=== PATIENT | female | born 1945 | race Caucasian/White ===

== ENCOUNTER → 2020-05-26 | Outpatient (CLI) | payer OTHER ==
[2020-05-29 15:40] LABS: BASOPHILS # (AUTO) 0.1 10^3/uL (0.0-0.1); BASOPHILS % (AUTO) 1 % (0-10); EOSINOPHILS # (AUTO) 0.1 10^3/uL (0.0-0.3); EOSINOPHILS % (AUTO) 1 % (0-10); HEMATOCRIT 50 % (35-52); LYMPHOCYTES # (AUTO) 2.5 10^3/uL (1.0-4.0); LYMPHOCYTES % (AUTO) 23 % (12-44); MEAN CORPUSCULAR HEMOGLOBIN 28 pg (25-34); MEAN CORPUSCULAR HGB CONC 32 g/dL (32-36); MEAN CORPUSCULAR VOLUME 89 fL (80-99); MEAN PLATELET VOLUME 10.5 fL (9.0-12.2); MONOCYTES # (AUTO) 0.9 10^3/uL (0.0-1.0); MONOCYTES % (AUTO) 9 % (0-12); NEUTROPHILS # (AUTO) 7.1 10^3/uL (1.8-7.8); NEUTROPHILS % (AUTO) 66 % (42-75); PLATELET COUNT 337 10^3/uL (130-400); WHITE BLOOD COUNT 10.8 10^3/uL (4.3-11.0)
[2020-05-29 17:54] LABS: LYMPHOCYTES % (MANUAL) 18 %; MONOCYTES % (MANUAL) 7 %; NEUTROPHILS % (MANUAL) 73 %; RBC MORPH NORMAL; REACTIVE LYMPHOCYTES 2 %
== END ==
LOC: GIR 13:30
PROVIDERS: ATTEND Otolaryngology
DX: Z01.89 Encounter for other specified special examinations (principal)

== ENCOUNTER 2020-12-13 10:16 | Inpatient (IN) | payer OTHER, MEDICARE ==
[~2020-12-13] VITALS: Ht 163 cm; Wt 62.0 kg
[~2020-12-13 10:16] MED LIST: ACHD5005 PO; ALPR0.254 PO; POLY17PO6 PO; TMSL.4C PO
[2020-12-13] MEDS ORDERED: MELATONIN 3 MG TABLET PO PRN (11:15)
[2020-12-13] MEDS ORDERED: METOCLOPRAMIDE INJ 10 MG/2 ML (REGLAN) IV PRN (11:15)
[2020-12-13] MEDS ORDERED: ONDANSETRON 4 MG/2 ML (SDV) Z0FRAN IVP PRN (11:15)
[2020-12-13] MEDS ORDERED: DOCUSATE SODIUM 100 MG (COLACE) CAP PO PRN (11:15)
[2020-12-13] MEDS ORDERED: NS IV 1000 ML 1,000 ML IV SCH (11:15)
[2020-12-13] MEDS ORDERED: diphenhydrAMINE 50 MG/ML INJ (BENADRYL) IV PRN (11:15)
[2020-12-13] MEDS ORDERED: LOPERAMIDE 2 MG (IMODIUM) TABLET PO PRN (11:15)
[2020-12-13] MEDS ORDERED: CALCIUM CARBONATE 500 MG (TUMS) TAB.CHEW PO PRN (11:15)
[2020-12-13] MEDS ORDERED: polyethylene glycoL POWDER 17 GM (MIRALAX) PACK PO PRN (11:15)
[2020-12-13] MEDS ORDERED: ACETAMINOPHEN 500 MG TAB (TYLENOL) PO PRN (11:15)
[2020-12-13] MEDS: HYDROmorphone PF INJECTION 10 MG in NS (IVPB) 50 ML IV SCH (11:43)
[2020-12-13 17:05] VITALS: BP 100/56
[2020-12-13] MEDS: LORazepam ORAL CONCENTRATE 2 MG/ML 30 ML (ATIVAN) PO PRN (20:15)
[2020-12-14] MEDS: HYDROmorphone PF INJECTION 10 MG in NS (IVPB) 50 ML IV SCH (04:03)
[2020-12-14 04:12] VITALS: BP 113/59
[2020-12-14] MEDS: LORazepam ORAL CONCENTRATE 2 MG/ML 30 ML (ATIVAN) PO PRN (06:40)
[2020-12-14] MEDS ORDERED: [UNRECOGNIZED DRUG - CODE] IV (10:50)
[2020-12-14] MEDS ORDERED: [UNRECOGNIZED DRUG - CODE] IV (10:54)
[2020-12-14] MEDS ORDERED: LORA2ORA PO (11:19)
--- NOTE | 2020-12-14 11:19 | History & Physical ---
History of Present Illness HPI/Chief Complaint CC: Inpatient Hospice HPI: Lengthy course after moved from [facility] for Oncology opinion and radiation treatment for palliative care for pain control. 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 Date Seen 12/14/20 Time Seen by a Provider: 11:00 Attending Physician Francisca Gao Lisa A MD Referring Physician Date of Admission December 13, 2020 at 11:05 Home Medications & Allergies Home Medications Reviewed patient Home Medication Reconciliation performed by pharmacy medication reconciliations dish technician and/or nursing. Patients Allergies have been reviewed. Allergies Allergies Coded Allergies raspberry (Verified Adverse Reaction, Mild, Hives, 12/06/20) Past Nvsrhdn-Sdgney-Xiaudw Hx Past Med/Social Hx: Reviewed Nursing Past Med/Soc Hx, Reviewed and Corrections made Patient Social History Marrital Status: single Employed/Student: retired Alcohol Use: Regular Use Smoking Status: Former Smoker Past Medical History Cardiac: Deep Vein Thrombosis, High Cholesterol, Hypertension Neurological: Spinal Cord Injury Gastrointestinal: Gastroesophageal Reflux Review of Systems Constitutional: see HPI Physical Exam Physical Exam Vital Signs Vital Signs - First Documented 12/13/20 12/13/20 12:13 17:05 Temp 36.6 Pulse 99 Resp 18 B/P (MAP) 100/56 (71) Pulse Ox 96 O2 Delivery Nasal Cannula O2 Flow Rate 2.00 Capillary Refill : Height, Weight, BMI Height: '" Weight: lbs. oz. kg; 23.33 BMI Method: General Appearance: No Apparent Distress, WD/WN, Chronically ill Results Results/Procedures Labs Patient resulted labs reviewed. 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 COPD Smoker Alcohol use in past Anemia s/p 1 unit of blood at [facility] Bilateral DVT's on Lovenox s/p GFF Plan: Radiation oncology Oncology evaluation Home meds 12/07/20: Pain control with Fentanyl patch added 12/08/2020: Fentanyl patch Bowel regimen Lovenox Monitor closely 12/09/20: Pain control 12/10/20: Needs full comfort care Insistent on full code 12/11/20: Cannot tolerate radiation treatment Progressive decline Needs comfort care and DNR 12/12/20: DNR Comfort care 12/14/20: Inpatient hospice Admission Status: Inpatient Order (span 2 midnights) Reason for Inpatient Admission: inpatient hospice FRANCISCA GAO DO December 14, 2020 11:19
--- NOTE | 2020-12-14 11:20 | Discharge Summary ---
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 [place] Bilateral DVT's on Lovenox s/p GFF Plan: Radiation oncology Oncology evaluation Home meds 12/07/20: Pain control with Fentanyl patch added 12/08/2020: Fentanyl patch Bowel regimen Lovenox Monitor closely 12/09/20: Pain control 12/10/20: Needs full comfort care Insistent on full code 12/11/20: Cannot tolerate radiation treatment Progressive decline Needs comfort care and DNR 12/12/20: DNR Comfort care Discharge Summary Discharge Physical Examination Allergies: Coded Allergies: raspberry (Verified Adverse Reaction, Mild, Hives, 12/06/20) Vitals & I&Os Vital Signs Date Time Temp Pulse Resp B/P (MAP) Pulse Ox O2 Delivery O2 Flow Rate FiO2 12/14/20 20:05 Nasal Cannula 1.50 12/14/20 18:00 36.0 108 12 102/52 (69) 86 General Appearance: Other (comatose) Hospital Course Was the Problem List Reviewed?: Yes See previous note Discharge Home Medications: Active Scripts Active Lorazepam Intensol (Lorazepam) 2 Mg/1 Ml Oral.conc 2 Mg PO Q2H PRN Hydromorphone 30 mg/30 ml-Ns (Hydromorphone HCl/0.9% NaCl/Pf) 30 Mg/30 Ml Supervisor [employer].syring 30 Mg IV UD 14 Days CONTINUOUS INFUSION: 1 mg/hr BOARD CERTIFIED ARTS THERAPIST Dose: 0.4 mg LOCKOUT: 10 min Max 4HR: NO LIMIT- Hospice Instructions to patient/family Please see electronic discharge instructions given to patient. FELY BIRMINGHAM DO December 14, 2020 11:20
[2020-12-14 18:00] VITALS: BP 102/52
== END 2020-12-14 21:25 | disposition hospice, home (50) | DRG 948 ==
LOC: 4TH 11:05
PROVIDERS: ADMIT Internal Medicine; ATTEND Internal Medicine
DX: G89.3 Neoplasm related pain (acute) (chronic) (principal); G82.20 Paraplegia, unspecified; C41.2 Malignant neoplasm of vertebral column; Z66 Do not resuscitate; Z51.5 Encounter for palliative care; Z86.718 Personal history of other venous thrombosis and embolism; E78.00 Pure hypercholesterolemia, unspecified; I10 Essential (primary) hypertension; K21.9 Gastro-esophageal reflux disease without esophagitis; J44.9 Chronic obstructive pulmonary disease, unspecified; F17.210 Nicotine dependence, cigarettes, uncomplicated; D64.9 Anemia, unspecified; Z79.01 Long term (current) use of anticoagulants; Z92.3 Personal history of irradiation; Z87.828 Personal history of other (healed) physical injury and trauma
CPT/HCPCS: 94760